=== PATIENT | male | born 1990 | race Hispanic/Latino ===

== ENCOUNTER 2017-10-22 17:25 | Emergency (ER) | payer BC, MEDICAID | END 2017-10-22 17:55 | disposition home or self-care (01) | LOC: EDH 17:25 | DX: F41.1 Generalized anxiety disorder (principal) ==

== ENCOUNTER 2020-04-06 08:28 | Emergency (ER) | payer MEDICAID ==
[2020-04-06] MEDS ORDERED: KETOROLAC TROMETHAMINE 60 MG/2 ML VIAL ONE (09:08)
== END 2020-04-06 09:30 | disposition home or self-care (01) ==
LOC: EDH 08:28
DX: M54.42 Lumbago with sciatica, left side (principal); M54.41 Lumbago with sciatica, right side
CPT/HCPCS: 96372; 99283; J1885